=== PATIENT | male | born 1995 | race Caucasian/White ===

== ENCOUNTER 2022-12-04 00:03 | Observation (INO) | payer SELFPAY ==
[2022-12-04] VITALS (9 sets, daily range): BP systolic 122–156; BP diastolic 64–89; PULSE 72–120; RESP 16–32; TEMP 36.7–37.2; O2SAT 95–98; BMI 25.7; BMI 25.8
--- NOTE | ~2022-12-04 | CT_ITS ---
Non-contrast Head CT History: Seizure Technique: Axial non-contrast imaging of the brain was performed. Dose reduction technique was used on this scan by utilizing automated exposure control and iterative reconstruction technique. The dose -length product (DLP) was 681.00 mGy-cm. Findings: There is no evidence of intracranial hemorrhage, mass lesion, or acute infarct. Brain par enchyma appears normal. 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 The ventricles and subarachnoid sp aces are normal in size. The calvarium appears normal. The visualized paranasal sinuses and mastoid air cells are clear. Impression: Absent septum pellucidum. There is suggestion of a very subtle CSF cleft in the left frontal lobe reg ion (axial image 32), which would indicate underlying associated schizencephaly. Follow-up MR is advi sed to better evaluate for structural abnormalities. Other diagnostic incisions could include lobar h oloprosencephaly or isolated absence of the septum pellucidum. Findings discussed with Dr. Campbell in the emergency room at the time of this reading. Reviewed, dictated and finalized at location M. Impression: Absent septum pellucidum. There is suggestion of a very subtle CSF cleft in the left frontal lobe region (axial image 32), which would indicate underlying ass ociated schizencephaly. Follow-up MR is advised to better evaluate for structur al abnormalities. Other diagnostic incisions could include lobar holoprosenceph son or isolated absence of the septum pellucidum. Findings discussed with Dr. Campbell in the emergency room at the time of this altaf ding.
--- NOTE | ~2022-12-04 | MR_ITS ---
EXAMINATION: MR brain/brain stem wo con DATE: 12/04/2022 17:51 INDICATION: Seizure. TECHNIQUE: Magnetic resonance imaging (MRI) of the brain and brainstem was performed without intraven ous contrast. COMPARISON: Head CT 12/04/22 FINDINGS: Septum pellucidum is absent. 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 There is simental matter heterotopia in this area. There are 3 foci of increased T2-weighted signal inten sity in the left frontal lobe deep white matter, which is normal for the patient's age. There is no i ntracranial hemorrhage, acute infarction, or abnormal intracranial mass lesion. The ventricles are no rmal in size. The mastoid air cells are normal. The paranasal sinuses are clear. The orbits are santos l. IMPRESSION: 1. 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 Reviewed, dictated and finalized at location E. IMPRESSION: 1. 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
--- NOTE | 2022-12-04 00:24 | ECG_ITS ---
Measurements Intervals Gravel Switch Rate: 107 P: 50 AR: 168 QRS: 57 QRSD: 102 T: 55 QT: 348 QTc: 465 Interpretive Statements SINUS TACHYCARDIA INCOMPLETE RIGHT BUNDLE BRANCH BLOCK ST ELEVATION CONSISTENT WITH INJURY, PERICARDITIS, OR EARLY REPOLARIZATION BASELINE WANDER- V1 ABNORMAL ECG NO PREVIOUS ECG AVAILABLE FOR COMPARISON Electronically Signed On 12-04-2022 16:31:04 CDT by Go Diez D.O.
[2022-12-04 00:26] LABS: Appearance Urine Clear (Clear); Bacteria Urine None Seen /hpf; Bilirubin Urine Negative (Negative); Blood Urine 1+ (Negative); Color Urine Yellow (Yellow); Glucose Urine UA Negative (Negative); Ketones Urine Negative (Negative); Leukocyte Esterase Ur Negative LEU/UL (Negative); Nitrate Urine Negative (Negative); Non Pathogenic Casts 0-2; Protein Urine Negative (Negative); RBC Urine 0-2 /hpf (0-2); Specific Grav Ur 1.006 (1.001-1.035); Squamous Epithelial Cell Urine None seen /hpf (Few); WBC Urine 0-5 /hpf; pH Urine 5.5 (5.0-9.0)
[2022-12-04 00:27] LABS: Add Urine Microscopic? YES
[2022-12-04 00:38] LABS: Basophils Percent Auto 0.4 % (0.2-1.2); Eosinophils Absolute Auto 0.1 K/mm3 (0-0.3); Eosinophils Percent Auto 1.1 % (0-4.4); Hematocrit 42.4 % (42.0-52.0); Hemoglobin 15.1 g/dL (14.0-18.0); Immature Granulocyte Absolute 0.06 K/mm3 (0.00-0.031); Immature Granulocyte Percent A 0.7 % (0-0.5); Immature Platelet Fraction Pct 4.8 % (0.9-11.2); Lymphocytes Absolute Auto 1.54 K/mm3 (0.9-3.2); Lymphocytes Percent Auto 16.9 % (18.3-44.2); Mean Corpuscular HGB Conc 35.6 g/dl (32-36); Mean Corpuscular Hemoglobin 32.2 pg (26-34); Mean Corpuscular Volume 90.4 fl (80-100); Mean Platelet Volume 9.5 fl (7.4-10.4); Monocytes Percent Auto 11.2 % (2.6-8.5); Neutrophils Absolute Auto 6.4 K/mm3 (1.3-6.7); Neutrophils Percent Auto 69.7 % (45.5-73.1); Platelet Count Result 230 k/mm3 (150-375); Red Blood Count 4.69 M/mm3 (4.6-6.20); Red Cell Distribution Width 11.7 % (11.5-14.5); White Blood Count 9.1 K/mm3 (4.5-10.0)
[2022-12-04 00:47] LABS: Partial Thromboplastin Time 22.2 SECONDS (22.3-36.8)
[2022-12-04 01:00] LABS: Glucose Point of Care 119 mg/dl (65-105)
[2022-12-04 01:05] LABS: Alanine Aminotransferase 54 U/L (6-50); Albumin Level 4.5 g/dL (3.5-5.1); Alkaline Phosphatase 48 U/L (38-126); Anion Gap 12 mmol/L (8-16); Aspartate Amino Transferase 74 U/L (17-59); Bilirubin,Total 0.9 mg/dL (0.2-1.3); Blood Urea Nitrogen 11 mg/dL (9-20); Calcium 9.1 mg/dL (8.4-10.2); Carbon Dioxide 20 mmol/L (22-30); Chloride 95 mmol/L (98-107); Estimated CRCL calculation 104 ml/min; Estimated Glomerular Filt Rate > 60; Glucose 88 mg/dL (65-110); Sodium 127 mmol/L (137-145)
[2022-12-04 01:05] LABS: Amphetamine Screen Urine Negative (Negative); Barbiturate Screen Urine Negative (Negative); Benzodiazepines Screen Urine Negative (Negative); Cannabinoid Screen Urine Negative (Negative); Cocaine Screen Urine Negative (Negative); Methadone Screen Urine Negative (Negative); Opiate Screen Urine Negative (Negative); Phencyclidine Screen Urine Negative (Negative)
--- NOTE | 2022-12-04 01:36 | ED.SEIZURE ---
HPI - Seizure General Chief Complaint: Seizure Stated Complaint: seizure Time Seen by Provider: 12/04/22 01:05 Source: patient and family (significant other) Limitations: no limitations History of Present Illness HPI Narrative: Patient presents to the emergency department accompanied by his significant other for a seizure. Patient denies any history of seizures in the past. Patient states around 10:30 PM he got up to go to the bathroom and didn?t have anything abnormal and then went back to bed and around 11 PM his significant other witnessed him having a approximately one minute in duration generalized tonic clonic seizure activity while laying in bed. After which patient was post ictal but has since returned to his baseline. Patient admits to biting the right side of his tongue. Patient denies stool incontinence or urine incontinence. Patient denies any recent injuries. Patient notes that throughout the day, preceding the seizure, he was having cramps in his extremities, and he had a couple episodes of non-bloody non-bilious emesis for which he took a liquid IV for hydration. Patient denies abdominal pain, dysuria, headache, numbness, weakness, vision, changes, sore throat, congestion, ear, pain, neck, pain, neck, stiffness, fever, chest pain, shortness of breath, cough, diarrhea, rash. Patient denies recent alcohol use and when asked if he is a significant alcohol consumer, he does admit to a history of this, but will not elaborate as to how much and rather states over the past couple weeks, he just drinks occasionally at approximately once per week. Last drink was over the weekend. Patient denies illicit drug use. Patient denies supplement use. Related Data Home Medications Medication Instructions Recorded Confirmed No Home Medications 12/04/22 12/04/22 Allergies Allergy/AdvReac Type Severity Reaction Status Date / Time No Known Allergies Allergy Verified 12/04/22 00:10 Review of Systems Review of Systems: A 10 system review of systems was completed on the patient and is negative except for what is stated in the HPI. Nursing and ancillary documentation was reviewed. [facility] Family History Family History (Updated 12/04/22 @ 06:29 by ALVA Quiles) Other Unknown family medical history Social History Social History Smoking packs per day: 1 Smoking cigarettes per day: 20.0 Years smoked: 6 Smoking pack-years: 6.00 Smoking status: Current every day smoker Tobacco type: cigarettes Second hand tobacco smoke exposure: Yes Alcohol intake: current Drinks per week: 10 Substance use: never Lack of Transportation: No Lack of Food: Never True Current Housing: I Have Housing Concerned About Future Housing: No Difficulty Paying Gas/Electric Bills: No Difficulty Paying for Meds: No Currently Unemployed: No Education: Trade/Vocational Certificate Difficulty w/ Childcare or Family Care: No Spiritual care concerns: No Comments At time of signature, I have reviewed and agree with nursing past medical, surgical, social and family history unless otherwise noted. Please see the nursing chart for further information. There is no relevant family history pertinent to the presenting complaint. Exam Narrative: CONST: No acute distress. Well nourished. HENMT: Head is normocephalic and atraumatic. Moist mucous membranes. No posterior oropharynx erythema. Small hemostatic right anterolateral tongue abrasion. EYES: No conjunctival icterus, injection, or pallor. PERRL. No gaze deviation. No nystagmus. NECK: No meningeal signs. RESP: Able to speak in full sentences. Normal respiratory effort. CTAB. CARDIO: Regular rate. Regular rhythm. 2+ DP and radial pulses bilaterally. GI: Nondistended. No tenderness to palpation. Soft. : No CVA tenderness to palpation. SKIN: No rashes or lesions noted on exposed skin. NEURO: Oriented x3. Moves all extremities. No focal neurological defi
[2022-12-04 01:42] LABS: Ethanol < 10 mg/dL (<10)
[2022-12-04] MEDS: LACTATED RINGERS 1,000 ML 999 ML IV CONT ×2 (02:07→04:51)
[2022-12-04 02:10] LABS: Creatine Kinase 2488 U/L (55-170)
[2022-12-04 02:31] LABS: Lactic Acid Reflex 1.3 mmol/L (0.7-2.0)
[2022-12-04 02:35] LABS: Lipase 50 U/L (23-300); Magnesium 2.3 mg/dL (1.6-2.3)
[2022-12-04 02:44] LABS: Troponin I < 0.012 ng/mL (0.000-0.034)
[2022-12-04 02:58] LABS: Influenza A QL RT-PCR Negative (Negative); Influenza B QL RT-PCR Negative (Negative); SARS-CoV-2 RNA PCR Negative (Negative)
--- NOTE | 2022-12-04 06:10 | ADMGEN ---
This patient, Jr Sanabria, was admitted to 2 Medical Room 256-01. Patient/family oriented to hospital policies and general routines including ID bracelet, bed and alarms, visiting hours, pain management, procedures, bathroom and other care routines, personal items, smoking policy, room service/diet, and visiting hours. Information on how to activate the Rapid Response Team has been discussed. Patient/Family are encouraged to report perceived risks to care and to ask questions if they do not understand what they are told or what they should do.
[2022-12-04] MEDS: LACTATED RINGERS 1,000 ML 125 ML IV CONT ×2 (06:55→15:30)
[2022-12-04 08:44] LABS: Glucose Point of Care 97 mg/dl (65-105)
[2022-12-04 12:10] LABS: Glucose Point of Care 138 mg/dl (65-105)
--- NOTE | 2022-12-04 12:39 | WPDNEURCNPN ---
Assessment and Plan Assessment and plan (1) New onset seizure: Code(s): R56.9 - Unspecified convulsions Status: Acute (2) Hemiatrophy of right lower extremity: Code(s): R68.89 - Other general symptoms and signs Status: Acute Plan 1 First seizure with negative CT scan of the head without contrast and though he does have a history of alcohol consumption in the past but not at this particular time. 2 patient does have a history of delayed milestones of growth and development with him my atrophy raising the possibility of left hemispheric dysfunction and focal seizure with secondary generalization again obviously complicated by the excessive amount of alcohol consumption also. Consult date: 12/04/22 HPI: Jr Sanabria is a 27 year old male Admitted to the hospital through the emergency room where he was brought by his significant other with the complaints of a seizure with no history of seizure disorder in the past, reportedly around 10:30 p.m. he got up to go the bathroom and then went back to the bed around 11:00 p.m. when his significant other witnessed him having [id number] in duration generalized tonic-clonic seizure activity while laying in bed up and subsequently he was postictal but did return to his baseline, he did bite his right side of the tongue but was not incontinent of urine or bowel ,he gave no history of recent or remote trauma, though he was experiencing cramps in his extremities throughout the day and had a couple of episodes of nonbloody nonbilious emesis, gave no history of abdominal pain, dysuria ,headache, numbness ,weakness he gave no history of recent alcohol use , he did give history of delayed milestones of growth and development particularly delay in walking. [facility] Family History Family History Other Unknown family medical history Social History Social History Smoking packs per day: 1 Smoking cigarettes per day: 20.0 Years smoked: 6 Smoking pack-years: 6.00 Smoking status: Current every day smoker Tobacco type: cigarettes Second hand tobacco smoke exposure: Yes Alcohol intake: current Drinks per week: 10 Substance use: never Lack of Transportation: No Lack of Food: Never True Current Housing: I Have Housing Concerned About Future Housing: No Difficulty Paying Gas/Electric Bills: No Difficulty Paying for Meds: No Currently Unemployed: No Education: Trade/Vocational Certificate Difficulty w/ Childcare or Family Care: No Spiritual care concerns: No Meds Home Medications and Allergies Home Medications Medication Instructions Recorded Confirmed Type No Home Medications 12/04/22 12/04/22 History Allergies Allergy/AdvReac Type Severity Reaction Status Date / Time No Known Allergies Allergy Verified 12/04/22 00:10 Vital Signs Vital Signs - 24 hr 12/04/22 00:04 12/04/22 00:20 12/04/22 00:21 Temperature 37.2 C Pulse Rate 120 H 116 H Respiratory Rate 32 H Blood Pressure 156/89 H Pulse Oximetry 97 97 Oxygen Delivery Room Air Room Air 12/04/22 00:22 12/04/22 03:44 12/04/22 04:50 Temperature Pulse Rate 99 97 Respiratory Rate 16 20 Blood Pressure 138/71 128/64 Pulse Oximetry 96 98 95 Oxygen Delivery Room Air 12/04/22 06:06 Temperature 36.7 C Pulse Rate 93 Respiratory Rate 18 Blood Pressure 126/81 Pulse Oximetry 96 Oxygen Delivery Exam Narrative: He was noted to be awake alert cooperative at this particular time in no obvious acute distress, his speech was not dysphasic no dysarthric not dysphonic, head was normocephalic with no bruit, ear nose throat examination normal, neck supple, heart regular with no murmur, lungs clear to auscultation, abdomen soft, neuro examination revealed him to have right-sided him my atrophy with questionable right Babinski. Results Labs
--- NOTE | 2022-12-04 14:19 | PM.IMHP ---
H&P: HPI History of Present Illness Date/Time: 12/04/22 14:19 Chief Complaint: Seizure Narrative: 27-year-old male presented to the ED with complaint of an episode of seizure last night. He states he went to work in a very hot environment all day yesterday. Came home started having muscle cramps all over his body and also had multiple episodes of vomiting. He subsequently went to bed. Around 11:00 p.m. his witnessed him having approximately 1 minute of generalized tonic-clonic seizure activity lying in bed. Was postictal subsequent to that and remained confused until a reached the ER. Patient bed his right side of the tongue during this process but there was no history of stool incontinence or urine incontinence. He reports no prior history of seizure. He denies any fever chills. Denies any recent alcohol use. No IV drugs or illicit drug use. His admitted in this setting for further evaluation and management. He was hyponatremic on arrival to the ER/27 with mild acidosis. Alcohol level is negative rapid COVID/flu PCR was negative. CK level was high at 2488. UDS was negative. No signs of infection with normal WBC count. No nuchal rigidity. TSH was normal CTH showed absent septum pellucidum. There is suggestion of very subtle in CSF cleft in the left frontal lobe region which would indicate underlying associated schizencephaly. Other diagnostic and delusions could include lobar holoprosencephaly or isolated absence of the septum pellucidum. Feels back to normal. Neurology consultation will get brain MRI anti seizure medication per Neurology Review of Systems Review of Systems: All systems reviewed & are unremarkable except as noted in HPI and below [facility] Family History Family History Other Unknown family medical history Social History Social History Smoking packs per day: 1 Smoking cigarettes per day: 20.0 Years smoked: 6 Smoking pack-years: 6.00 Smoking status: Current every day smoker Tobacco type: cigarettes Second hand tobacco smoke exposure: Yes Alcohol intake: current Drinks per week: 10 Substance use: never Lack of Transportation: No Lack of Food: Never True Current Housing: I Have Housing Concerned About Future Housing: No Difficulty Paying Gas/Electric Bills: No Difficulty Paying for Meds: No Currently Unemployed: No Education: Trade/Vocational Certificate Difficulty w/ Childcare or Family Care: No Spiritual care concerns: No Meds Home Medications and Allergies Home Medications Medication Instructions Recorded Confirmed Type No Home Medications 12/04/22 12/04/22 History Allergies Allergy/AdvReac Type Severity Reaction Status Date / Time No Known Allergies Allergy Verified 12/04/22 00:10 Vital Signs Vital Signs - 24 hr 12/04/22 00:04 12/04/22 00:20 12/04/22 00:21 Temperature 98.9 F Pulse Rate 120 H 116 H Respiratory Rate 32 H Blood Pressure 156/89 H Pulse Oximetry 97 97 Oxygen Delivery Room Air Room Air 12/04/22 00:22 12/04/22 03:44 12/04/22 04:50 Temperature Pulse Rate 99 97 Respiratory Rate 16 20 Blood Pressure 138/71 128/64 Pulse Oximetry 96 98 95 Oxygen Delivery Room Air 12/04/22 06:06 12/04/22 09:00 Temperature 98.0 F Pulse Rate 93 Respiratory Rate 18 Blood Pressure 126/81 Pulse Oximetry 96 Oxygen Delivery Room Air H&P: Results Labs Labs: Short CBC 12/04/22 Range/Units 00:30 WBC 9.1 (4.5-10.0) K/mm3 Hgb 15.1 (14.0-18.0) g/dL Hct 42.4 (42.0-52.0) % Plt Count 230 (150-375) k/mm3 BMP 12/04/22 00:30 Sodium 127 L Potassium 4.0 Chloride 95 L Carbon Dioxide 20 L BUN 11 Creatinine 0.90 Glucose 88 Calcium 9.1 Cardiac Enzymes 12/04/22 12/04/22 Range/Units 00:30 02:14 Total Creatine Kinase 2488 H (55-170) U/L Troponin I < 0.0
[2022-12-04] MEDS: NICOTINE (*PBKC) 14 MG PATCH 1 PATCH TRANSDERM (19:53)
[2022-12-05] MEDS: LACTATED RINGERS 1,000 ML 125 ML IV CONT (01:32)
[2022-12-05 04:17] VITALS: BP 123/73; PULSE 70; RESP 20; TEMP 36.6; O2SAT 98
[2022-12-05 05:17] LABS: Basophils Percent Auto 0.4 % (0.2-1.2); Eosinophils Absolute Auto 0.2 K/mm3 (0-0.3); Eosinophils Percent Auto 3.3 % (0-4.4); Hematocrit 40.3 % (42.0-52.0); Hemoglobin 13.7 g/dL (14.0-18.0); Immature Granulocyte Absolute 0.01 K/mm3 (0.00-0.031); Immature Granulocyte Percent A 0.1 % (0-0.5); Lymphocytes Absolute Auto 2.31 K/mm3 (0.9-3.2); Lymphocytes Percent Auto 32.2 % (18.3-44.2); Mean Corpuscular Hemoglobin 32.2 pg (26-34); Mean Corpuscular Volume 94.8 fl (80-100); Monocytes Absolute Auto 0.7 K/mm3 (0.1-0.6); Monocytes Percent Auto 9.2 % (2.6-8.5); Neutrophils Absolute Auto 3.9 K/mm3 (1.3-6.7); Neutrophils Percent Auto 54.8 % (45.5-73.1); Platelet Count Result 200 k/mm3 (150-375); Red Blood Count 4.25 M/mm3 (4.6-6.20); Red Cell Distribution Width 11.9 % (11.5-14.5); White Blood Count 7.2 K/mm3 (4.5-10.0)
[2022-12-05 05:29] LABS: Alanine Aminotransferase 43 U/L (6-50); Albumin Level 3.4 g/dL (3.5-5.1); Alkaline Phosphatase 38 U/L (38-126); Anion Gap 3 mmol/L (8-16); Aspartate Amino Transferase 52 U/L (17-59); Bilirubin,Total 0.7 mg/dL (0.2-1.3); Blood Urea Nitrogen 6 mg/dL (9-20); Calcium 8.2 mg/dL (8.4-10.2); Carbon Dioxide 24 mmol/L (22-30); Chloride 109 mmol/L (98-107); Creatine Kinase 937 U/L (55-170); Estimated CRCL calculation 151 ml/min; Estimated Glomerular Filt Rate > 60; Glucose 99 mg/dL (65-110); Magnesium 2.2 mg/dL (1.6-2.3); Potassium 3.9 mmol/L (3.4-5.0); Sodium 136 mmol/L (137-145)
[2022-12-05] MEDS: NICOTINE (*PBKC) 14 MG PATCH 1 PATCH TRANSDERM (08:15)
--- NOTE | 2022-12-05 11:54 | PM.DS ---
DS: Admitting Diagnosis Discharge Date 12/05/2022 Admitting Diagnosis New onset seizure DS: Discharge Diagnosis Discharge Diagnosis (1) Hemiatrophy of right lower extremity: Code(s): R68.89 - Other general symptoms and signs Status: Acute (2) New onset seizure: Code(s): R56.9 - Unspecified convulsions Status: Acute (3) Elevated CPK: Code(s): R74.8 - Abnormal levels of other serum enzymes Status: Acute DS: Summary Hospital Course Hospital Course: 27-year-old male presented to the ED with complaint of an episode of seizure last night.? He states he went to work in a very hot environment all day yesterday.? Came home started having muscle cramps all over his body and also had multiple episodes of vomiting.? He subsequently went to bed.? Around 11:00 p.m. his witnessed him having approximately 1 minute of generalized tonic-clonic seizure activity lying in bed.? Was postictal subsequent to that and remained confused until a reached the ER.? Patient bed his right side of the tongue during this process but there was no history of stool incontinence or urine incontinence.? He reports no prior history of seizure.? He denies any fever chills.? Denies any recent alcohol use.? No IV drugs or illicit drug use.? His admitted in this setting for further evaluation and management.? He was hyponatremic on arrival to the ER/27 with mild acidosis.? Alcohol level is negative rapid COVID/flu PCR was negative.? CK level was high at 2488.? UDS was negative.? No signs of infection with normal WBC count.? No nuchal rigidity.? TSH was normal CTH showed absent septum pellucidum.? There is suggestion of very subtle in CSF cleft in the left frontal lobe region which would indicate underlying associated schizencephaly.? Other diagnostic and delusions could include lobar holoprosencephaly or isolated absence of the septum pellucidum.? Feels back to normal.? Neurology consultation. Brain MRI performed showed left-sided closed lip schizencephaly with associated simental matter heterotopia and absent septum pellucidum. Discussed finding with Neurology. Will start him on anti seizure medication with Keppra. 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 Well mauricio shed. HENMT: Head is normocephalic a nd atraumatic. Walt st mucous membrane s. No posterior or opharynx erythema. Small hemostatic right anterolatera l tongue abrasion. EYES: No conjunct ival icterus, inje ction, or pallor. PERRL. No gaze dev iation. No nystagm us. NECK: No menin geal signs. RESP: Able to speak in f ull sentences. Nor mal respiratory ef fort. CTAB. CARDIO : Regular rate. Re gular rhythm. 2+ D P and radial pulse s bilaterally. GI: Nondistended. No tenderness to palp ation. Soft. : N o CVA tenderness t o palpation. SKIN: No rashes or lesi ons noted on expos ed skin. NEURO: Or iented x3. Moves a ll extremities. No focal neurologica l deficits. No henry mors. EXTREM: No p edal edema. PSYCH: Normal affect. ? DS: Data Data Completed and Pending Labs on day of discharge: Labs from last 24 hours 12/05/22 12/04/22 05:13 12:00 WBC 7.2 RBC 4.25 L Hgb 13.7 L Hct 40.3 L MCV 94.8 MCH 32.2 MCHC 34.0 RDW 11.9 Plt Count 200 MPV 9.0 Immature Gran % (Auto) 0.1 Neut % (Auto) 54.8 Lymph % (Auto) 32.2 [place] % (Auto) 9.2 H Eos % (Auto) 3.3 Baso % (Auto) 0.4 Lymph # (Auto) 2.31 [place] # (Auto) 0.7 H Eos # (Auto) 0.2 Baso # (Auto) 0.0 Abs Immat Gran (auto) 0.01 Absolute Neuts (auto) 3.9 Absolute Nucleated RBC 0.0 Nucleated RBC % 0.0 Sodium 136 L Potassium 3.9 Chloride 109 H Carbon Dioxide 24 Anion Gap 3 L BUN 6 L D Creatinine 0.60 L Estim Creat Clear Calc
[2022-12-05] MEDS: levETIRAcetam IV 750 MG in DEXTROSE 5% 100 ML 430 MG IVPB (12:12)
--- NOTE | 2022-12-05 12:17 | WPDNEUROPN ---
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 Given [employer]INE[employer] malformation, patient is at risk for additional seizures. Recommend starting anti-seizure medication at this time. Also discussed that he should not drive or operate heavy machinery until he is seizure free for at least six months. Patient verbalized undestanding. - Start Keppra 750mg BID - Patient should follow-up in [facility] Neurology clinic in about 3 months Subjective Date/time seen: 12/05/22 12:17 Interval history: Mr. Sanabria is a 27 year old male with a history of CP presenting for first time seizure. Patient had a witnessed GTC lasting about a minute. HE was post-ictal afterwards and was confused until he reached the ER. He had tongue biting but no incontinence. He has no prior history fof seizures. UDS was negative. There was no concern for infection. MRI brain showed left sied closed lip schizencephaly and simental matter heterotopia with absent septum pellucidum. Patient has not had any seizures since admission. He is back to his baseline. Patient was diagnosed with CP around age 1-2 years. He has chronic right sided weakness. He works at a steel factory currently. Review of Systems Constitutional: Constitutional: Denies chills, Denies fever(s) and Denies weight loss Eyes: Eyes: Denies diplopia and Denies loss of vision ENT: Denies dizziness, Denies hearing loss and Denies tinnitus Cardiovascular: Cardiovascular: Denies chest pain, Denies syncope and Denies dyspnea Respiratory: Respiratory: Denies cough, Denies dyspnea and Denies wheezing Gastrointestinal: Gastrointestinal: Denies abdominal pain, Denies change in bowel habits and Denies vomiting Genitourinary: Genitourinary: Denies urinary incontinence Musculoskeletal: Musculoskeletal: Denies arthralgias and Denies joint swelling Integumentary/Breasts: Skin/Breast: Denies new lesions and Denies rash Neurologic: Reports as per HPI, Denies dizziness, Denies syncope and Denies loss of vision Psychiatric: Psychiatric: Denies anxiety and Denies depression Endocrine: Endocrine: Denies cold intolerance and Denies heat intolerance Hematologic/Lymphatic: Hematologic/Lymphatic: Denies easy bleeding and Denies easy bruising Allergic/Immunologic: Allergic/Immunologic: Denies no additional allergic/immunologic complaints and Denies wheezing Exam Const: General: comfortable and no acute distress HENMT: Mouth: Yes moist mucous membranes Eyes: Pupils: Equal, round and reactive pupils present EOM: EOMs intact bilaterally Resp: Effort & Inspection: normal respiratory effort Skin: General skin exam: normal color Neuro: Other: Pupils equal and reactive bilaterally, EOMI, face symmetric, facial sensation intact, tongue protrudes midline, palate midline. Shoulder shrug normal. RUE/RLE 4/5 LUE/LLE 5/5. Sensation reduced in RUE and RLE. FNF normal bilaterally. Language comprehension and fluency intact. Gait deferred. Extrem: Other: reduced muscle bulk in RLE (chronic) Psych: Mental Status: mental status grossly normal Affect: normal affect Objective Data Vital Signs Vital Signs: Vital Signs - 24 hr 12/04/22 14:00 12/04/22 20:10 12/04/22 20:00 Temperature 36.9 C 37.0 C Pulse Rate 92 72 Respiratory Rate 22 H 20 Blood Pressure 132/69 122/70 Pulse Oximetry 97 97 Oxygen Delivery Room Air 12/05/22 04:17 Temperature 36.6 C Pulse Rate 70 Respiratory Rate 20 Blood Pressure 123/73 Pulse Oximetry 98 Oxygen Delivery Intake/Output Intake/Output: Intake & Output 12/02/22 12/03/22 12/04/22 12/05/22 23:59 23:59 23:59 23:59 Intake Total 9099 864 Balance 4242 413 Meds/Results Medication
--- NOTE | 2022-12-06 13:04 | WPDNEUROLOGY ---
Neurology EEG Report General Information Date of Study: 12/05/22 TEST EEG DIAGNOSIS seizures CONDITION OF RECORDING awake drowsy and sleep EEG NUMBER [id number] CLINICAL HISTORY patient reports he is here due to having a new onset seizure EEG DESCRIPTION basic resting occipital frequency consists of low voltage 9 to 11 hertz per 2nd alpha admixed with low-voltage 15 to 18 hertz per 2nd beta. Low-voltage beta activity seen diffusely during drowsiness with waxing and waning posterior alpha rhythm. Intermittent regular EKG artifact is noted throughout the tracing. Bilateral symmetrical sleep activity is noted 2 sleep hyperventilation not done photic stimulation not done. Non paroxysmal. Nonfocal. Nonlateralizing. IMPRESSION Normal record
== END 2022-12-05 12:59 | disposition home or self-care (01) ==
LOC: ANHED 04:24 → ANH2MED 12-05 11:54
PROVIDERS: Internal Medicine; Physician Assistant; Admitting Provider Internal Medicine; Emergency Provider Student in an Organized Health Care Education/Training Program; Visit Provider Internal Medicine
DX: R56.9 Unspecified convulsions (principal); Q04.6 Congenital cerebral cysts; R68.89 Other general symptoms and signs; R74.8 Abnormal levels of other serum enzymes; Z20.822 Contact with and (suspected) exposure to COVID-19; E87.1 Hypo-osmolality and hyponatremia; E87.20 Acidosis, unspecified; R97.8 Other abnormal tumor markers; R94.31 Abnormal electrocardiogram [ECG] [EKG]; F17.210 Nicotine dependence, cigarettes, uncomplicated; F10.90 Alcohol use, unspecified, uncomplicated; Y90.0 Blood alcohol level of less than 20 mg/100 ml
CPT/HCPCS: 36415; 70450; 70551; 80053; 80307; 81001; 82550; 82948; 83605; 83690; 83735; 84443; 84484; 85025; 85055; 85610; 85730; 87636; 93005; 95816; 96360; 96361; 96374; 99285; A9270; G0378; J1953; J7120

== ENCOUNTER 2023-09-28 17:57 | Outpatient (CLI) | payer OTHER, SELFPAY ==
[2023-09-28 18:20] LABS: Basophils Absolute Auto 0.1 K/mm3 (0.0-0.1); Basophils Percent Auto 0.7 % (0.2-1.2); Eosinophils Absolute Auto 0.2 K/mm3 (0-0.3); Eosinophils Percent Auto 3.2 % (0-4.4); Hematocrit 45.3 % (42.0-52.0); Hemoglobin 15.8 g/dL (14.0-18.0); Immature Granulocyte Absolute 0.02 K/mm3 (0.00-0.031); Immature Granulocyte Percent A 0.3 % (0-0.5); Lymphocytes Percent Auto 29.4 % (18.3-44.2); Mean Corpuscular HGB Conc 34.9 g/dl (32-36); Mean Corpuscular Hemoglobin 30.8 pg (26-34); Mean Corpuscular Volume 88.3 fl (80-100); Mean Platelet Volume 9.1 fl (7.4-10.4); Monocytes Absolute Auto 0.5 K/mm3 (0.1-0.6); Monocytes Percent Auto 7.9 % (2.6-8.5); Neutrophils Percent Auto 58.5 % (45.5-73.1); Platelet Count Result 272 k/mm3 (150-375); Red Blood Count 5.13 M/mm3 (4.6-6.20); Red Cell Distribution Width 12.2 % (11.5-14.5); White Blood Count 6.8 K/mm3 (4.5-10.0)
[2023-09-28 18:32] LABS: Alanine Aminotransferase 41 U/L (6-50); Albumin Level 4.7 g/dL (3.5-5.1); Alkaline Phosphatase 62 U/L (38-126); Anion Gap 7 mmol/L (4-12); Aspartate Amino Transferase 31 U/L (17-59); Bilirubin,Total 0.4 mg/dL (0.2-1.3); Blood Urea Nitrogen 13 mg/dL (9-20); Calcium 9.4 mg/dL (8.4-10.2); Carbon Dioxide 27 mmol/L (22-30); Chloride 106 mmol/L (98-107); Creatine Kinase 178 U/L (55-170); Estimated Glomerular Filt Rate > 60; Glucose 87 mg/dL (65-110); Potassium 4.4 mmol/L (3.4-5.0); Sodium 140 mmol/L (137-145)
== END 2023-09-28 17:58 | disposition home or self-care (01) ==
PROVIDERS: PCP Family Medicine; Visit Provider Family Medicine
DX: G80.9 Cerebral palsy, unspecified (principal); R74.8 Abnormal levels of other serum enzymes; Q04.6 Congenital cerebral cysts; R56.9 Unspecified convulsions
CPT/HCPCS: 36415; 80053; 82248; 82550; 84443; 85025